=== PATIENT | male | born 1990 | race Caucasian/White ===

== ENCOUNTER → 2022-03-26 11:00 | Outpatient (CLI) | payer MEDICAID, SELFPAY ==
[2022-03-26 17:42] LABS: Alanine Aminotransferase 19 U/L (12-78); Albumin Level 4.4 g/dl (3.5-5.0); Albumin/Globulin Ratio 1.8 (1.1-1.8); Alkaline Phosphatase 77 U/L (38-126); Anion Gap 16.7 mEq/L (5-15); Aspartate Amino Transferase 31 U/L (17-59); Bilirubin,Total 0.3 mg/dl (0.2-1.3); Blood Urea Nitrogen 8 mg/dl (9-20); Calcium 8.8 mg/dl (8.4-10.2); Carbon Dioxide 26 mmol/L (22.0-30.0); Chloride 103 mmol/L (98-107); Chol/HDL Ratio 4.9 (1-3.5); Cholesterol 185 mg/dl (140-200); Estimated Glomerular Filt Rate 114 ml/min (>60); GFR (African American) 138 ML/MIN (>60); Globulin 2.5 g/dL (1.3-3.2); Glucose 74 mg/dl (74-100); HDL Cholesterol 38 mg/dl (40-60); Potassium 4.7 mmoL/L (3.5-5.1); Sodium 141 mmol/L (136-145); Total Protein,Serum 6.9 g/dl (6.3-8.2); Triglycerides 134 mg/dl (30-150); VLDL Cholesterol 27 mg/dL (0-40)
[2022-03-26 17:49] LABS: Basophils # 0.1 K/mm3 (0-0.2); Basophils % 1.4 % (0.1-2.0); Eosinophils # 0.1 K/mm3 (0.0-0.4); Eosinophils % 1.6 % (0.1-12.0); Hematocrit 47.8 % (42.0-52.0); Hemoglobin 15.7 g/dL (14.1-18.0); Lymphocytes # 2.5 K/mm3 (0.7-4.5); Lymphocytes % 28.6 % (10-50); Mean Corpuscular HGB Conc 32.8 g/dL (31.8-35.4); Mean Corpuscular Hemoglobin 29.3 pg (27.0-31.2); Mean Corpuscular Volume 89.2 fl (80-94); Mean Platelet Volume 9.1 fl (7.4-10.4); Monocytes # 0.6 K/mm3 (0.1-1.0); Monocytes % 6.7 % (1.7-9.3); Neutrophils # 5.4 K/mm3 (1.8-7.8); Neutrophils % 61.7 % (37.0-80.0); Platelet Count 283 K/mm3 (142-424); Red Blood Count 5.35 M/mm3 (4.60-6.20); Red Cell Distribution Width 13.3 % (11.5-17.5); White Blood Count 8.8 K/mm3 (4.8-10.8)
[2022-03-26 17:53] LABS: Direct LDL Cholesterol 116.08 mg/dL (100-129)
[2022-03-26 17:59] LABS: 25-OH Vitamin D, Total 26.8 ng/mL (30-100)
[2022-03-26 18:12] LABS: Thyroid Stimulating Hormone 1.51 uIU/mL (0.465-4.68)
[2022-03-26 18:31] LABS: Vitamin B12 377 pg/mL (239-931)
== END ==
PROVIDERS: PCP Physician Assistant; Visit Provider Physician Assistant
DX: Z83.3 Family history of diabetes mellitus (principal); E55.9 Vitamin D deficiency, unspecified
CPT/HCPCS: 80053; 80061; 82306; 82607; 84443; 85025

== ENCOUNTER 2022-05-07 07:35 | Day surgery (SDC) | payer MEDICAID, SELFPAY ==
[2022-05-05 17:19] VITALS: BMI 27.8
[2022-05-07 07:50] VITALS: BP 117/66; PULSE 71; RESP 18; TEMP 36.2; O2SAT 100
--- NOTE | 2022-05-07 09:45 | SUR.PREOP ---
Surgery cancelled per Dr. Arteaga D/T neck cyst much improved. IV out, follow up appt made and pt left preop.
== END 2022-05-07 09:45 ==
LOC: OR 07:36
PROVIDERS: PCP Physician Assistant; Visit Provider Surgery
PROC: (CPT 11422; principal; 2022-05-07 09:15)
DX: L72.3 Sebaceous cyst (principal); Z53.8 Procedure and treatment not carried out for other reasons; Z72.0 Tobacco use
CPT/HCPCS: 11422; 96374